=== PATIENT | female | born 1995 | race Caucasian/White ===

== ENCOUNTER → 2023-03-26 14:59 | Outpatient (CLI) | payer OTHER, SELFPAY ==
--- NOTE | ~2023-03-26 | US_ITS ---
EXAMINATION: US OB <= 14 weeks fetus DATE: 03/26/2023 15:25 INDICATION: Spotting during first trimester TECHNIQUE: Real-time pelvic transabdominal and transvaginal ultrasound was performed. COMPARISON: None. FINDINGS: The uterus measures 9.1 x 7.0 x 6.3 cm. There is an intrauterine gestational sac. A yolk sa c is identified. heart motion is identified measuring 165 beats per minute (bpm) by M-mode Dopp ler. The crown rump length measures 15 mm, which correlates with an estimated gestational age o f 7 weeks and 6 day(s) (+/-) 5 day(s). The left ovary is not visualized however no left adnexal abnormality is seen. The right ovary measure s 2.5 x 2.7 x 2.5 cm. There is normal vascular flow in the right ovary. There is no free fluid in the pelvis. IMPRESSION: 1. Live intrauterine with an estimated gestational age of 7 weeks and 6 day(s) (+/-) 5 day( s) and an estimated delivery date of 11/06/2023. Reviewed, dictated and finalized at location F. IMPRESSION: 1. Live intrauterine with an estimated gestational age of 7 weeks and 6 day(s) (+/-) 5 day(s) and an estimated delivery date of 11/06/2023.
== END ==
PROVIDERS: PCP Advanced Practice Midwife; Visit Provider Advanced Practice Midwife
DX: O26.851 Spotting complicating pregnancy, first trimester (principal); Z3A.01 Less than 8 weeks gestation of pregnancy
CPT/HCPCS: 76801

== ENCOUNTER → 2023-06-13 15:27 | Outpatient (CLI) | payer OTHER, SELFPAY ==
--- NOTE | ~2023-06-13 | US_ITS ---
EXAMINATION: US OB /maternal detail DATE: 06/13/2023 16:12 INDICATION: Second trimester anatomic survey TECHNIQUE: Real-time ultrasound of the pelvis was performed. COMPARISON: None. FINDINGS: There is a single living fetus in vertex presentation. The placenta is fundal. The measured cervical length is 3.5 cm. heart rate is 188 beats per minute (bpm). cardiac activity and m ovement are noted. The amniotic fluid index is subjectively normal. The following anatomy was identified as normal: 4 chamber heart 3 vessel cord cord insertion kidneys urinary bladder stomach spine diaphragm ventricles cisterna magna cerebellum The following biometric data were obtained: Biparietal diameter (BPD): 4.7 cm; head circumference (HC): 16.9 cm; abdominal circumference (AC): 15 .4 cm; femur length (FL): 3.3 cm. These measurements are concordant. Estimated weight is 352 g +/- 52 g, which correlates with the >97th percentile when 11/06/2023 i s used as estimated date of delivery. As single measurements, these parameters are each equal to the following estimated gestational ages w ith ranges of +/- 2 standard deviations: BPD: 20 weeks 1 days ( 18 weeks 3 days - 22 weeks 0 days). HC: 19 weeks 4 days ( 18 weeks 0 days - 21 weeks 0 days). AC: 20 weeks 4 days ( 18 weeks 4 days - 22 weeks 5 days). FL: 20 weeks 3 days ( 18 weeks 4 days - 22 weeks 2 days). estimated gestational age based solely on measurements from this exam is 20 weeks 1 days +/- 1 weeks 3 days. IMPRESSION: 1. Single living fetus in vertex presentation. 2. Estimated weight is 352 g +/- 52 g, which correlates with the >97th percentile when 4 is used as estimated date of delivery. Reviewed, dictated and finalized at location A. IMPRESSION: 1. Single living fetus in vertex presentation. 2. Estimated weight is 352 g +/- 52 g, which correlates with the >97th pe rcentile when 11/06/2023 is used as estimated date of delivery.
== END ==
PROVIDERS: PCP Advanced Practice Midwife; Visit Provider Advanced Practice Midwife
DX: Z36.9 Encounter for antenatal screening, unspecified (principal)
CPT/HCPCS: 76805

== ENCOUNTER 2023-11-01 20:50 | Inpatient (IN) | payer OTHER, SELFPAY ==
[2023-11-01 21:47] LABS: Basophils Percent Auto 0.3 % (0.2-1.2); Eosinophils Absolute Auto 0.1 K/mm3 (0-0.3); Eosinophils Percent Auto 0.9 % (0-4.4); Hematocrit 35.5 % (37.0-47.0); Hemoglobin 11.7 g/dL (12.0-15.0); Immature Granulocyte Absolute 0.08 K/mm3 (0.00-0.031); Immature Granulocyte Percent A 0.8 % (0-0.5); Lymphocytes Percent Auto 17.3 % (18.3-44.2); Mean Corpuscular Hemoglobin 27.9 pg (26-34); Mean Corpuscular Volume 84.5 fl (80-100); Mean Platelet Volume 10.5 fl (7.4-10.4); Monocytes Absolute Auto 0.6 K/mm3 (0.1-0.6); Monocytes Percent Auto 6.2 % (2.6-8.5); Neutrophils Absolute Auto 7.8 K/mm3 (1.3-6.7); Neutrophils Percent Auto 74.5 % (45.5-73.1); Platelet Count Result 218 k/mm3 (150-375); Red Cell Distribution Width 14.1 % (11.5-14.5); White Blood Count 10.4 K/mm3 (4.5-10.0)
--- NOTE | 2023-11-01 21:50 | LDADM ---
This patient, Franc Butts, was admitted to Labor/Delivery/Recovery 106 on 11/01/23 at 20:50. Plans for labor, pain management and were discussed with patient. Patient/family oriented to hospital policies and general routines including ID bracelet, bed and alarms, visiting hours, pain management, procedures, bathroom and other care routines, personal items, smoking policy, room service/diet and guest tray routines, security routines, and visiting hours. Patient/Family are encouraged to report perceived risks to care and to ask questions if they do not understand what they are told or what they should do. See OBIX for further documentation.
--- NOTE | 2023-11-01 21:51 | PM.IMHP ---
H&P: HPI History of Present Illness Date/Time: 11/01/23 21:51 Chief Complaint: term in labor Narrative: this is a 291 para 0 whose EDC is 11/06/2023 confirmed by 10 week ultrasound attached to make its office who presents in labor with spontaneous rupture membranes her appears to been uncomplicated over the fetus has tricuspid regurgitation and will be followed . She is 2cm and jorge l irregularly she hopes not to use an epidural PMFSH Family History Family History Other Patient denies significant medical history Social History Social History Substance use: never Spiritual care concerns: No Meds Home Medications and Allergies Home Medications Medication Instructions Recorded Confirmed Type prenat.vits,carlos,xfq-[id number]-maxrg 1 tablet 10/09/23 History Allergies Allergy/AdvReac Type Severity Reaction Status Date / Time cephalexin Allergy Hives Verified 10/09/23 15:37 Exam Const: General: cooperative, healthy appearing and comfortable Nutritional Appearance: average body habitus Orientation/consciousness: oriented to person, oriented to place and oriented to time Resp: Effort & Inspection: normal respiratory effort Cardio: Rate: regular rate Rhythm: regular rhythm Heart sounds: S1 normal heart sound present and S2 normal heart sound present GI: Inspection: normal to inspection : External Female Exam: normal external appearance Speculum Exam - Vagina: normal appearance of the vagina Speculum Exam - Cervix: normal appearance of the cervix (2cm. heart tones reassuring) H&P: Results Labs Labs: Short CBC 11/01/23 Range/Units 21:33 WBC 10.4 H (4.5-10.0) K/mm3 Hgb 11.7 L (12.0-15.0) g/dL Hct 35.5 L (37.0-47.0) % Plt Count 218 (150-375) k/mm3 Assessment and Plan Assessment and plan (1) Term : Code(s): Z34.90 - Encounter for supervision of normal , unspecified, unspecified trimester Status: Acute Plan spontaneous vaginal delivery is expected
[2023-11-01 22:00] VITALS: TEMP 36.3
[2023-11-01 22:01] VITALS: BMI 37.4
[2023-11-01 22:04] VITALS: BP 130/75; PULSE 83
[2023-11-02] VITALS (221 sets, daily range): BP systolic 85–168; BP diastolic 30–121; PULSE 30–138; RESP 13–20; TEMP 36.4–36.9; O2SAT 80–100
[2023-11-02] MEDS: LACTATED RINGERS 1,000 ML 125 ML IV CONT ×3 (04:10→17:32)
--- NOTE | 2023-11-02 07:49 | P.PNOB_ITS ---
Pain Control Date/time seen: 11/02/23 07:49 Pain control: tolerating well and epidural Comments: The patient has requested the nurse donor support technician attend her delivery the remained this back up but this point as needed
--- NOTE | 2023-11-02 07:49 | PM.OBPNLAB ---
Pain Control Date/time seen: 11/02/23 07:49 Pain control: tolerating well and epidural Comments: The patient has requested the nurse physician locums urgent care attend her delivery the remained this back up but this point as needed
[2023-11-02] MEDS: OXYTOCIN 30 UNITS/NS 500 ML 30 UNITS/500 ML BAG IV CONT (08:30)
[2023-11-02] MEDS: VANCOMYCIN 1,000 MG/NS 250 ML 1,000 MG/250 ML BAG 250 MG IVPB (13:35)
[2023-11-02] MEDS: fentaNYL CITRATE INJ (*CRX) 100 MCG/2 ML VIAL 50 MCG IV PUSH ×2 (14:39→17:46)
[2023-11-02] MEDS: FAMOTIDINE 20 MG TABLET PO ×2 (16:41)
--- NOTE | 2023-11-02 18:37 | WPDANESEPP ---
Anes - Eval Pre Procedure Procedure: Labor epidural Date/Time: 11/02/23 18:37 Surgeon: Ani Weinberg Preop Diagnosis: Abdominal pain with contractions Pre Op Diagnosis: Leaking Fluid Patient Data Age: 28 Gender: F Height: 1.63 m Weight: 99 kg Last Vital Signs Temp 98.3 F 11/02/23 17:39 Pulse 84 11/02/23 18:31 BP 142/73 H 11/02/23 18:31 Pulse Ox 96 11/02/23 18:34 Allergies Allergy/AdvReac Type Severity Reaction Status Date / Time cephalexin Allergy Hives Verified 10/09/23 15:37 Home Medications Medication Instructions Recorded Confirmed Type prenat.vits,carlos,oug-gnqt-lbnpu 1 tablet PO DAILY 10/09/23 11/02/23 History Laboratory Tests 11/01/23 21:33 WBC 10.4 H K/mm3 (4.5-10.0) RBC 4.20 M/mm3 (4.2-5.4) Hgb 11.7 L g/dL (12.0-15.0) Hct 35.5 L % (37.0-47.0) MCV 84.5 fl (80-100) MCH 27.9 pg (26-34) MCHC 33.0 g/dl (32-36) RDW 14.1 % (11.5-14.5) Plt Count 218 k/mm3 (150-375) MPV 10.5 H fl (7.4-10.4) Immature Gran % (Auto) 0.8 H % (0-0.5) Neut % (Auto) 74.5 H % (45.5-73.1) Lymph % (Auto) 17.3 L % (18.3-44.2) [place] % (Auto) 6.2 % (2.6-8.5) Eos % (Auto) 0.9 % (0-4.4) Baso % (Auto) 0.3 % (0.2-1.2) Lymph # (Auto) 1.80 K/mm3 (0.9-3.2) [place] # (Auto) 0.6 K/mm3 (0.1-0.6) Eos # (Auto) 0.1 K/mm3 (0-0.3) Baso # (Auto) 0.0 K/mm3 (0.0-0.1) Abs Immat Gran (auto) 0.08 H K/mm3 (0.00-0.031) Absolute Neuts (auto) 7.8 H K/mm3 (1.3-6.7) Absolute Nucleated RBC 0.0 K/mm3 (0.0-0.012) Nucleated RBC % 0.0 % (0.0-0.2) RPR Pending Blood Type O Positive Antibody Screen Negative : gestational age HCG: positive Patient hx anesthesia problems: none Family hx anesthesia problems: none Results Review: All pre-operative results and documents have been reviewed as part of the pre-operative evaluation. [facility] Past Medical History Medical History (Updated 11/02/23 @ 18:39 by Fidel Terrazas CRNA) Obesity and not yet delivered Term Family History Family History Other Patient denies significant medical history Social History Social History Smoking status: Never smoker Second hand tobacco smoke exposure: No Substance use: never Do You Feel Safe in your Home?: No Lack of Transportation: No Lack of Food: Never True Current Housing: I Have Housing Concerned About Future Housing: No Difficulty Paying Gas/Electric Bills: No Difficulty Paying for Meds: No Currently Unemployed: No Education: Master's Degree or Higher Difficulty w/ Childcare or Family Care: No Spiritual care concerns: No Exam Day of Procedure 11/02/23 18:37
--- NOTE | 2023-11-02 19:20 | PM.OBPNLAB ---
Pain Control Date/time seen: 11/02/23 2630 Spoke with Krista ADAMSON on telephone. Pain control: epidural (requesting ) Pelvic Exam Amniotic membrane status: Ruptured Contractions Monitor mode: Internal Contraction frequency: 1 (1.5-3.5) Contraction duration: 60 (60-80) Contraction pattern: Regular Status status: Category ll Comments: Moderate variability and acceleration present Assessment and Plan Assessment: induction ongoing Comments: Pt checked by RN at 1650 and called 6cm. Pt requesting epidural a this time. Asked RN to repeat SVE one hour after epidural placement to evaluate for labor progress. Ctx adequate. s/p Vancomycin for prolonged ROM. Dr. Ani Weinberg updated.
--- NOTE | 2023-11-02 19:26 | PM.OBPNLAB ---
Pain Control Date/time seen: 11/02/23 19:26 Pain control: tolerating well and epidural Pelvic Exam Dilation (cm): 6 Effacement (%): 90 station: -1 Amniotic membrane status: Ruptured Comments: per nurse exam Contractions Monitor mode: Internal Contraction frequency: 1 (1.5-3.5) Contraction pattern: Regular Status status: Category ll
--- NOTE | 2023-11-02 20:08 | PM.OBPNLAB ---
Pain Control Date/time seen: 11/02/23 20:08 Pain control: tolerating well and epidural Comments: SVE per RN Pelvic Exam Dilation (cm): 6 Effacement (%): 90 station: -1 Amniotic membrane status: Ruptured Contractions Monitor mode: Internal Contraction pattern: Regular Status status: Category ll Assessment and Plan Comments: Tato with pt and her spouse on telephone. Discussed labor progress and ctx pattern. Discussed SVE history as well as adequate contraction pattern today. Offered pt to continue with augmentation and attempt vaginal or proceed with delivery. Reviewed prolonged ROM and reassurance with tracing. Franc murilloers at this time. Discussed risk of infection, bleeding, pain, damage to surrounding organs/tissues. Pt verbalizes understanding. CNM spoke with Dr. Ani Weinberg on telephone. Plan for .
--- NOTE | 2023-11-02 20:11 | P.PNOB_ITS ---
Pain Control Date/time seen: 11/02/23 20:11 Pain control: tolerating well and epidural Pelvic Exam Dilation (cm): 6 Effacement (%): 90 station: -1 Amniotic membrane status: Ruptured Comments: Patient's in 7hours documented adequate uterine contractions with no change in cervix. She discuss with nurse victims advocate clerk/specialist and myself and agrees to section. Risks benefits reviewed in great detail Contractions Monitor mode: Internal Contraction frequency: 1 (1.5-3.5) Contraction pattern: Regular Status status: Category ll
[2023-11-02] MEDS: CLINDAMYCIN 900 MG/D5W 50 ML 900 MG/50 ML PIGGYBACK 50 MG IVPB (20:39)
--- NOTE | 2023-11-02 21:19 | W.PM.OBCSD ---
OB - Delivery Note Procedure Delivery date: 11/02/23 Pre-op diagnosis: Arrest of Decent and Other (Prolonged rupture of membranes) Post-op Diagnosis: Same Induction method: None Delivery augmentation: Pitocin Delivery monitor: External FHT and Internal Uterine Procedure Performed: Primary Surgeon: Ezequiel Weinberg MD Anesthesia type: Epidural Description of Procedure/Findings: the patient was admitted in active labor on . She had meconium fluid. She was watched through the night and an IUPC was placed. Pitocin augmentation was begun and she reached about 7cm. She remained there for about 5-6 hours and had prolonged rupture membranes for about 24hours. In light of the failure to progression was offered section. Risks and benefits reviewed in great detail and she was taken to the back. Previously an epidural at catheter been placed. the abdomen was entered in Pfannenstiel fashion progressive layers to fascia. Fascia incised midline carried in upward outward fashion bilaterally. Underlying muscles sharply dissected. Parietal peritoneum elevated by clamps and by sharp dissection carried superiorly and inferiorly to dome of bladder. Bladder blade placed. Bladder flap formed. Bladder blade returned. A low-transverse incision made the head delivered in the RODERICK position. Anterior posterior shoulder delivered spontaneously. Cord clamped x2 and cut passed off the table with an excellent cry. Placenta delivered intact manually the uterus delivered on the abdomen wrapped in moist towel. After assuring no membranes or debris remained in the uterus, the uterus was closed in continuous running locking 0 Vicryl from lateral edge to lateral edge. This was followed by 2nd imbricating running locking 0 Vicryl from lateral edge to lateral edge. Hemostasis was assured. Ovaries and tubes appeared within normal limits. The uterus returned to the abdomen. Hysterotomy incision inspected 1 last time noted be hemostatic. Laps removed and accounted for the fascia closed with continuous running 0 Vicryl from lateral edge to lateral edge. Irrigation undertaken the subcutaneous layer and skin closed with 4 Monocryl and glue. Blood loss by QBL was 590cc. All sponge, needle, instrument counts were correct. There were no immediate complications noted mom and baby doing fine at the time of dictation. Specimen: No Estimated Blood Loss: 590 Drains: No Packing: No Pathology: None sent Complications: No immediate complications Condition: Stable Disposition: Floor Baby Date of : 01/[birth year]/24 Time of : 21:00 Weeks of gestation at delivery: 39 Infant gender: Female presentation: vertex position: Right Occiput Anterior Placenta delivery description: Spontaneous Cord Vessel Description: 3 Vessels, Nuchal Cord, Loose and Reduced
--- NOTE | 2023-11-02 21:24 | PM.DS ---
DS: Admitting Diagnosis Discharge Date 11/05/2023 Admitting Diagnosis Term DS: Discharge Diagnosis Discharge Diagnosis (1) Term : Code(s): Z34.90 - Encounter for supervision of normal , unspecified, unspecified trimester Status: Acute (2) Delivery by section: Status: Acute (3) Incisional pain: Code(s): L76.82 - Other postprocedural complications of skin and subcutaneous tissue Status: Acute DS: Summary Hospital Course Reason for hospitalization: patient was admitted on 11/01/2023 in active labor. She progressed her 24hour labor which showed resulted in low-transverse section. Hospital Course: Patient's hospital course unremarkable. She remained afebrile. She was up, voiding without difficulty, eating regular diet, ambulating, generally without complaints. Time Spent with Patient Time attestation: Total time spent providing and/or coordinating discharge services: Exam Const: General: cooperative, healthy appearing and comfortable Nutritional Appearance: average body habitus Orientation/consciousness: oriented to person, oriented to place and oriented to time HENMT: Head: normal to inspection Resp: Effort & Inspection: normal respiratory effort Cardio: Rate: regular rate Rhythm: regular rhythm Heart sounds: S1 normal heart sound present and S2 normal heart sound present GI: Inspection: normal to inspection and incision ( Wound is clean dry and intact) DS: Data Data Completed and Pending Labs on day of discharge: Labs from last 24 hours 11/01/23 21:33 WBC 10.4 H RBC 4.20 Hgb 11.7 L Hct 35.5 L MCV 84.5 MCH 27.9 MCHC 33.0 RDW 14.1 Plt Count 218 MPV 10.5 H Immature Gran % (Auto) 0.8 H Neut % (Auto) 74.5 H Lymph % (Auto) 17.3 L [place] % (Auto) 6.2 Eos % (Auto) 0.9 Baso % (Auto) 0.3 Lymph # (Auto) 1.80 [place] # (Auto) 0.6 Eos # (Auto) 0.1 Baso # (Auto) 0.0 Abs Immat Gran (auto) 0.08 H Absolute Neuts (auto) 7.8 H Absolute Nucleated RBC 0.0 Nucleated RBC % 0.0 RPR Pending Blood Type O Positive Antibody Screen Negative Discharge Plan Discharge Attending physician on discharge: Marilynn Graham Consulting providers: Ezequiel Cervantes Discharging Clinician: Evelyn Otero Anticipated Discharge Date/Time: 11/05/23 10:00 Patient Disposition: Home, Self-Care Activity: may shower, no straining, may drive after 2 weeks and pelvic rest Diet: heart healthy Wound Care Instructions: follow printed instructions Discharge Instructions: Education: Mom and Baby Guide Given to: Mother Follow-Up: Call your delivering provider's office for an appointment to be seen in: 1 week for incision check; 6 weeks post visit Mom and baby should come to the [facility] for the follow-up appointment. Appointment Date/Time: October at 9:00 a.m. What to expect at your follow-up visit: Blood Pressure Check Physical Assessment Call [phone] if you are unable to keep your appointment time. BREAST CARE: * Wear a snug supportive bra. * For engorgement discomfort: Breast Feeding: * Apply warm moist washcloths * Express milk as needed to relieve engorgement * Wear loose clothing * For sore nipples: * Identify correct latch-on * Apply warm moist washcloths before and after nursing * Air dry nipples after nursing * May apply Lansinoh cream to nipples ABDOMINAL INCISION: (if applicable) * Allow incision to air dry * Do NOT use lotions for powders on your incision * When showering, allow soap and water to run over the incision, but do not wash incision EPISIOTOMY/PERINEAL CARE: * Change your pad frequently throughout the day * You may take sitz baths several times a day (fill your bathtub with warm water and soak for 20 minutes.) Do NOT bathe in the
[2023-11-02] MEDS: OXYTOCIN 30 UNITS/NS 500 ML 30 UNITS/500 ML BAG 125 UNITS IV CONT (22:19)
--- NOTE | 2023-11-02 23:51 | PC.NURSE ---
Patient transferred to post room #291 via ( Stretcher ). Support person present. Oriented to unit, room, information board, rooming in, admission packet and security measures. Patient verbalizes understanding.
[2023-11-03 00:55] VITALS: BP 104/57; PULSE 80; RESP 16; TEMP 36.9; O2SAT 97
[2023-11-03] MEDS: IBUPROFEN 600 MG TABLET (01:29)
[2023-11-03] MEDS: HYDROcodone/acetaminophen (*CRX) 5-325 MG TABLET 1 TAB (01:29)
[2023-11-03 05:30] VITALS: BP 106/60; PULSE 84; RESP 18; TEMP 37.1; O2SAT 98
--- NOTE | 2023-11-03 07:09 | PM.OBPNVD ---
OB - PN: Subj Subjective Date/time seen: 11/03/23 07:09 Patient comments: no complaints and pain well controlled baby status: doing well OB - PN: Obj Data Labs 11/01/23 21:33 OB - PN A/P Plan day: 1 Plan: routine care Time Spent With Patient Time: Total time spent is greater than 50% in coordination of care (as documented) at patient's floor/unit and/or counseling patient: Time with patient: less than 15 minutes Exam Const: General: cooperative, healthy appearing, comfortable and average body habitus Orientation/consciousness: oriented to person, oriented to place and oriented to time Resp: Effort & Inspection: normal respiratory effort Cardio: Rate: regular rate Rhythm: regular rhythm Heart sounds: S1 normal heart sound present and S2 normal heart sound present GI: Inspection: normal to inspection (Fundus firm below the umbilicus) and incision (Were clean dry and intact)
[2023-11-03] MEDS: IBUPROFEN 600 MG TABLET PO ×2 (07:26→15:10)
[2023-11-03] MEDS: HYDROcodone/acetaminophen (*CRX) 5-325 MG TABLET 1 TAB PO ×2 (07:26→15:10)
[2023-11-03 07:40] VITALS: BP 98/57; PULSE 84; RESP 18; TEMP 37.6; O2SAT 97
--- NOTE | 2023-11-03 08:46 | WPDANLDNPN2 ---
Anes-Prog Note L&D-Neuraxial Date/Time: 11/03/23 08:46 Neuraxial medications: epidural PF morphine Opiod-related complaints: none Patient feedback: Patient satisfied with post-operative pain management.
--- NOTE | 2023-11-03 08:46 | WPDANLDPN2 ---
Anes-Prog Note L&D Date/Time: 11/03/23 08:46 Comfortable throughout: section Neuraxial method: epidural Epidural/Spinal procedure site: clean & non-tender Neuro status: Neuro function grossly intact. Cardiovascular status: normal Respiratory status: normal Airway patency: baseline Mental status: baseline Post-Op hydration status: normal Vital Signs: Last Vital Signs Temp 37.1 C 11/03/23 05:30 Pulse 84 11/03/23 05:30 Resp 18 11/03/23 05:30 BP 106/60 11/03/23 05:30 Pulse Ox 98 11/03/23 05:30 O2 Del Method Room Air 11/03/23 05:30 Pain score (VAS): 2/10 I/O: Intake & Output 11/02/23 11/03/23 11/03/23 23:59 07:59 15:59 Intake Total 1149 400 Output Total 1055 600 Balance 94 -200 Post-procedural complaints: pruritis mild, no treatment Patient feedback: Patient satisfied with anesthetic care.
[2023-11-03 10:05] LABS: Rapid Plasma Reagin Non-Reactive (NonReactive)
--- NOTE | 2023-11-03 10:50 | PC.NURSE ---
[id number] Introductions were made, then consulted with patient to assess needs related to . Discussed with mother her?plans to feed?her infant, the?experience so far, and is going well without pain. We discussed ways to wake , using [id number] to stimulate infant for , and watching for feeding cues facilitated with handouts. Resources provided for inpatient and outpatient services with the feeding sheet, mom/baby guide and name written on the communication board. Parents voiced understanding of information and will call if there is a request for assistance.
[2023-11-03] MEDS: DOCUSATE SODIUM 100 MG CAPSULE PO ×2 (10:57→16:20)
[2023-11-03] MEDS: MULTIVIT/MIN/PREN/FOL AC/IRON TABLET 1 TAB PO (10:57)
[2023-11-03] MEDS: LANOLIN (LANSINOH) 7.5 GM CREAM 1 APPLIC TOPICAL (10:58)
[2023-11-03] MEDS: FAMOTIDINE 20 MG TABLET PO (10:58)
[2023-11-03 12:13] VITALS: BP 116/57; PULSE 84; RESP 18; TEMP 36.9; O2SAT 98
[2023-11-03 12:19] LABS: Basophils Percent Auto 0.3 % (0.2-1.2); Eosinophils Absolute Auto 0.1 K/mm3 (0-0.3); Eosinophils Percent Auto 0.6 % (0-4.4); Hematocrit 32.2 % (37.0-47.0); Hemoglobin 10.4 g/dL (12.0-15.0); Immature Granulocyte Absolute 0.07 K/mm3 (0.00-0.031); Immature Granulocyte Percent A 0.5 % (0-0.5); Lymphocytes Absolute Auto 1.21 K/mm3 (0.9-3.2); Lymphocytes Percent Auto 8.3 % (18.3-44.2); Mean Corpuscular HGB Conc 32.3 g/dl (32-36); Mean Corpuscular Hemoglobin 27.9 pg (26-34); Mean Corpuscular Volume 86.3 fl (80-100); Mean Platelet Volume 10.8 fl (7.4-10.4); Monocytes Absolute Auto 0.9 K/mm3 (0.1-0.6); Neutrophils Absolute Auto 12.3 K/mm3 (1.3-6.7); Neutrophils Percent Auto 84.3 % (45.5-73.1); Platelet Count Result 163 k/mm3 (150-375); Red Blood Count 3.73 M/mm3 (4.2-5.4); Red Cell Distribution Width 14.4 % (11.5-14.5); White Blood Count 14.5 K/mm3 (4.5-10.0)
[2023-11-03 16:20] VITALS: BP 112/65; PULSE 90; RESP 16; TEMP 36.9; O2SAT 100
[2023-11-03 20:50] VITALS: BP 123/72; PULSE 94; RESP 16; TEMP 37.1; O2SAT 96
[2023-11-04] MEDS: DOCUSATE SODIUM 100 MG CAPSULE PO ×2 (06:34→16:17)
[2023-11-04] MEDS: HYDROcodone/acetaminophen (*CRX) 5-325 MG TABLET 1 TAB PO ×3 (06:34→16:17)
[2023-11-04] MEDS: MULTIVIT/MIN/PREN/FOL AC/IRON TABLET 1 TAB PO (06:35)
[2023-11-04] MEDS: IBUPROFEN 600 MG TABLET PO ×2 (06:35→16:17)
--- NOTE | 2023-11-04 07:41 | P.PNOB_ITS ---
OB - PN: Subj Subjective Date/time seen: 11/04/23 07:41 Interval history: Doing well. Urinating without difficulty. Denies passing any large clots. Up out of bed independently. Denies dizziness with ambulating. Tolerating po food and fluids. Bonding with infant. Patient comments: pain well controlled and incisional pain Babbitt baby status: nursing well Babbitt feeding status: exclusively breast feeding OB - PN: Obj Data Labs 11/03/23 12:11 Labs: Laboratory Results - last 24 hr 11/01/23 11/03/23 21:33 12:11 WBC 14.5 H RBC 3.73 L Hgb 10.4 L Hct 32.2 L MCV 86.3 MCH 27.9 MCHC 32.3 RDW 14.4 Plt Count 163 MPV 10.8 H Immature Gran % (Auto) 0.5 Neut % (Auto) 84.3 H Lymph % (Auto) 8.3 L [place] % (Auto) 6.0 Eos % (Auto) 0.6 Baso % (Auto) 0.3 Lymph # (Auto) 1.21 [place] # (Auto) 0.9 H Eos # (Auto) 0.1 Baso # (Auto) 0.0 Abs Immat Gran (auto) 0.07 H Absolute Neuts (auto) 12.3 H Absolute Nucleated RBC 0.0 Nucleated RBC % 0.0 RPR Non-reactive OB - PN A/P Plan day: 2 Plan: routine care Time Spent With Patient Time: Total time spent is greater than 50% in coordination of care (as documented) at patient's floor/unit and/or counseling patient: Review of Systems Review of Systems: All systems reviewed & are unremarkable except as noted in HPI and below Exam Const: General: cooperative, no acute distress and awake Orientation/consciousness: patient oriented x3 Limitations: no limitations Resp: Effort & Inspection: normal respiratory effort and able to speak in complete sentences Auscultation: clear to auscultation bilaterally Cardio: Rate: regular rate Peripheral pulses: Peripheral pulses 2+ throughout GI: Inspection: normal to inspection Auscultation: normal bowel sounds : General: Yes bladder normal to palpation Speculum Exam - Vagina: vaginal bleeding Bimanual exam- vagina & uterus: bladder normal to palpation OB/external & speculum: vaginal bleeding Other: Fundus firm Skin: General skin exam: normal color Other: Incision C/D/I Neuro: General: patient oriented x3 Cognition (Neuro): normal cognition Speech: normal speech Extrem: General: normal to inspection Psych: Appearance: grossly normal Mental Status: mental status grossly normal Speech and movement: Normal speech and movement present Affect: normal affect Attitude: cooperative Thought process: Normal thought process present
[2023-11-04 07:55] VITALS: BP 109/61; PULSE 86; RESP 18; TEMP 37.3; O2SAT 98
--- NOTE | 2023-11-04 09:13 | PC.NURSE ---
[id number] Mother verbalizes she is able to independently latch with appropriate positioning and alignment. She denies any nipple discomfort and is responsively . Mother and infant demonstrate effective on the right breast using the cradle positioning. is currently meeting outcomes for weight, output, jaundice, blood sugar and feeding frequencies of 8-12 times in 24 hours. Mother declines any additional assistance or education at this time. Mother is encouraged to call for assistance if her doesn?t latch, pain with latching, questions or concerns. Mother voiced understanding of information shared along with the mom/baby guide for an additional resource.
[2023-11-04 20:24] VITALS: BP 113/63; PULSE 89; RESP 18; TEMP 36.6; O2SAT 96
[2023-11-05] MEDS: IBUPROFEN 600 MG TABLET PO ×2 (01:12→08:46)
[2023-11-05] MEDS: HYDROcodone/acetaminophen (*CRX) 5-325 MG TABLET 1 TAB PO ×2 (01:12→08:46)
[2023-11-05 07:24] VITALS: BP 126/77; PULSE 91; RESP 16; TEMP 36.4; O2SAT 100
--- NOTE | 2023-11-05 07:46 | PM.OBPNVD ---
OB - PN: Subj Subjective Date/time seen: 11/05/23 07:46 Interval history: Doing very well. Still urinating without difficulty. Passing flatus, no BM. Denies passing any large clots. Up out of bed independently. Denies dizziness with ambulating. Tolerating po food and fluids. Bonding with . Patient comments: no complaints and pain well controlled [place] baby status: doing well and nursing well feeding status: exclusively breast feeding OB - PN: Obj Data Labs 11/03/23 12:11 OB - PN A/P Plan day: 3 Plan: discharge home Time Spent With Patient Time: Total time spent is greater than 50% in coordination of care (as documented) at patient's floor/unit and/or counseling patient: Review of Systems Review of Systems: All systems reviewed & are unremarkable except as noted in HPI and below Exam Const: General: cooperative, no acute distress and awake Orientation/consciousness: patient oriented x3 Limitations: no limitations Resp: Effort & Inspection: normal respiratory effort and able to speak in complete sentences Auscultation: clear to auscultation bilaterally Cardio: Rate: regular rate Peripheral pulses: Peripheral pulses 2+ throughout GI: Inspection: normal to inspection Auscultation: normal bowel sounds : General: Yes bladder normal to palpation Speculum Exam - Vagina: vaginal bleeding Bimanual exam- vagina & uterus: bladder normal to palpation OB/external & speculum: vaginal bleeding Other: Fundus firm Skin: General skin exam: normal color Other: Incision C/D/I Neuro: General: patient oriented x3 Cognition (Neuro): normal cognition Speech: normal speech Extrem: General: normal to inspection Psych: Appearance: grossly normal Mental Status: mental status grossly normal Speech and movement: Normal speech and movement present Affect: normal affect Attitude: cooperative Thought process: Normal thought process present
--- NOTE | 2023-11-05 07:55 | PC.NURSE ---
On 11/05/23, the student, Jordyn David, provided care and completed [facility] documentation on this patient. I have reviewed the student's documentation and agree with the findings.
[2023-11-05 08:00] VITALS: PULSE 91; RESP 16; O2SAT 100
[2023-11-05] MEDS: MULTIVIT/MIN/PREN/FOL AC/IRON TABLET 1 TAB PO (08:47)
[2023-11-05] MEDS: DOCUSATE SODIUM 100 MG CAPSULE PO (08:47)
--- NOTE | 2023-11-05 09:38 | PC.NURSE ---
[id number] Mother led the conversation with her experience so far, plan to feed her , and her ability to independently latch optimally without discomfort. Reminded mother to use good handwashing technique to prevent infection. Mother is feeding appropriately for growth of infant and understands stimulating to eat if needed. has had appropriate feedings in the last 24 hours meets the outcomes for weight, output, blood sugar and jaundice at this time. Mother states she is confident to continue effectively her at home, when to call for assistance, denies any additional assistance or education at this time. Reinforced understanding of milk production, transition of milk, signs of adequate intake, transition of stool, prevention/relief of engorgement, plugged ducts, mastitis, responsive watching for feeding cues, the different methods of stimulating to breastfeed 1-3 hours after the start of the last feeding, community resources, and when to call a provider using the resource of the feeding sheet along with the mom and baby guide. Mother voiced understanding of the education shared.
--- NOTE | 2023-11-05 10:03 | PC.NURSE ---
Patient viewed the discharge video Mother & Baby Care, The First Two Weeks . Patient was given the opportunity and encouraged to ask questions. Patient verbalized understanding of information shared and has been given the mother/baby guide for home reference.
[2023-11-06 09:21] VITALS: BP 126/74; PULSE 144; RESP 18; TEMP 37; O2SAT 97
== END 2023-11-05 11:06 | disposition home or self-care (01) | DRG 788 ==
LOC: ANHLDR 11-02 21:26 → ANHOB2 11-03 15:14 → ANHLDR 11-06 09:15 → ANHOB2 11-06 09:15
PROVIDERS: Admitting Provider Obstetrics & Gynecology; PCP Advanced Practice Midwife; Visit Provider Obstetrics & Gynecology
PROC: 10D00Z1 Extraction of Products of Conception, Low, Open Approach (ICD-10-PCS; CPT 59514; principal; 2023-11-02 20:30)
DX: O62.1 Secondary uterine inertia (principal); O69.81X0 Labor and delivery complicated by cord around neck, without compression, not applicable or unspecified; O77.0 Labor and delivery complicated by meconium in amniotic fluid; O42.92 Full-term premature rupture of membranes, unspecified as to length of time between rupture and onset of labor; Z3A.39 39 weeks gestation of pregnancy; Z37.0 Single live birth
CPT/HCPCS: 36415; 85025; 86592; 86850; 86900; 86901; A9270; J2001; J2274; J2405; J2590; J2795; J3010; J3370; J7120